=== PATIENT | female | born 1970 | race Caucasian/White ===

== ENCOUNTER → 2019-11-05 14:40 | Outpatient (BNVA) | payer BC, SELFPAY | PROVIDERS: Visit Provider Specialist | DX: F44.5 Conversion disorder with seizures or convulsions (principal); G43.109 Migraine with aura, not intractable, without status migrainosus; F17.210 Nicotine dependence, cigarettes, uncomplicated | CPT/HCPCS: 99204 ==

== ENCOUNTER 2019-12-31 12:53 | Outpatient (CLI) | payer BC, SELFPAY ==
--- NOTE | 2019-12-31 13:00 | MR_ITS ---
WS: [id number] MRI HEAD WITHOUT CONTRAST TECHNIQUE: Sagittal T1, T2 axial, T2 axial FLAIR, axial and coronal T1 images, axial susceptibility w eighted imaging, axial diffusion weighted images, and coronal T2 images were obtained. CLINICAL INFORMATION: [id number] Syncope and collapse COMPARISON: MRI October 30, 2019, CTA October 29, 2019 FINDINGS: Some images degraded by patient motion. No evidence of restricted diffusion to suggest acute ischemia. Ventricular system and basal cisterns are patent. Minimal periventricular white matter changes. No suspicious intracranial signal abnormali ties. No significant parenchymal volume loss. Normal posterior fossa. Normal vascular flow voids at the skull base. No extra-axial fluid collection s. No evidence of mass or mass effect. Mild mucosal thickening in the paranasal sinuses. Partial opac ification of the left frontal ethmoidal recess. Mastoid air cells are well aerated. Normal visualized posterior nasopharynx. Visualized upper cervical spine is normal. No hemosiderin on the susceptibility weighted images. Norm al optic chiasm and pituitary infundibulum. Temporal lobes and hippocampal formations are normal bila terally. No evidence of mesial temporal sclerosis or temporal lobe signal abnormality. No significant hippocampal atrophy. Proximal 7th and 8th cranial nerves appear unremarkable. MR/MR head wo con* [id number] IMPRESSION: 1. No evidence of restricted diffusion to suggest acute ischemia. 2. Minimal periventricular white matter changes of doubtful clinical significa nce. No suspicious intracranial signal abnormalities. 3. No significant parenchymal volume loss. 4. Temporal lobes and hippocampal formations are normal in appearance bilatera lly. No signal abnormality in the mesial temporal lobes. 5. Mild mucosal thickening in the paranasal sinuses with partial opacification of the left frontal ethmoidal recess consistent with mild sinusitis. Mastoid a ir cells well aerated. 6. No hemosiderin on the susceptibly weighted images. 7. No significant changes since October 30, 2019
--- NOTE | 2019-12-31 14:22 | USCV_ITS ---
Tony Bharath Age: 49 Gender: F : 1970 Exam Date: 12/31/2019 14:19 Ordering Phys: Verna Grover MD Technologist: Flavia Eller Exam Location: [facility] – [place] Indication: SYNCOPE AND COLLAPSE BP: / HR: 64 Rhythm: Sinus Technical Quality: Adequate MEASUREMENTS (Male / Female) Normal Values 2D ECHO LV Diastolic Diameter PLAX 4.3 cm 4.2 - 5.9 / 3.9 - 5.3 cm LV Systolic Diameter PLAX 2.3 cm IVS Diastolic Thickness 0.9 cm 0.6 - 1.0 / 0.6 - 0.9 cm IVS Systolic Thickness 1.4 cm LVPW Diastolic Thickness 0.7 cm 0.6 - 1.0 / 0.6 - 0.9 cm LVPW Systolic Thickness 1.6 cm LVOT Diameter 2.0 cm LV Ejection Fraction 2D Teich 77.7 % LV Ejection Fraction MOD 2C 85.1 % LV Ejection Fraction 2C AL 85.3 % LA Diameter 2.5 cm LA Width 2.6 cm LA Height 3.9 cm RA Width 2.3 cm RA Height 4.4 cm M-MODE LV Diastolic Diameter MM 5.4 cm 4.2 - 5.9 / 3.9 - 5.3 cm LV Systolic Diameter MM 3.5 cm LV Ejection Fraction MM Teich 65.4 % IVS Diastolic Thickness MM 0.9 cm 0.6 - 1.0 / 0.6 - 0.9 cm IVS Systolic Thickness MM 1.4 cm LVPW Diastolic Thickness MM 1.0 cm 0.6 - 1.0 / 0.6 - 0.9 cm LVPW Systolic Thickness MM 1.5 cm Aortic Annulus Diameter 3.2 cm LA Ao Ratio MM 0.8 MV E Point Septal Separation 0.2 cm DOPPLER AV Peak Velocity 147.0 cm/s LVOT Peak Velocity 128.0 cm/s AV Area Cont Eq vti 2.8 cm squared AV Area Cont Eq pk 2.8 cm squared MV Peak Velocity 99.0 cm/s MV Area PHT 3.1 cm squared Mitral E to A Ratio 1.0 MV E' Velocity 13.0 cm/s Mitral E to MV E' Ratio 9.1 Mitral E to LV E' Lateral Ratio 7.7 Mitral E to LV E' Septal Ratio 11.2 TR Peak Velocity 98.0 cm/s TR Peak Gradient 3.8 mmHg Right Atrial Pressure 3.0 mmHg Pulmonary Artery Systolic Pressu 6.8 mmHg PV Peak Velocity 92.0 cm/s RV Acceleration Time 0.1 s FINDINGS Left Ventricle Normal left ventricular cavity size. No regional wall motion abnormalities. Normal left ventricular systolic function. Left ventricular ejection fraction is estimated at 65 %. Grade I/IV diastolic dysfunction (abnormal relaxation filling pattern), normal to mildly elevated filling pressures. Right Ventricle The right ventricle is normal in size and function. Right Atrium The right atrium is normal in size. Left Atrium The left atrium is normal in size. Mitral Valve Moderately thickened mitral valve. No mitral valve stenosis. No mitral valve regurgitation. Aortic Valve Moderate aortic valve calcification. No aortic valve stenosis. No aortic valve regurgitation. Tricuspid Valve Structurally normal tricuspid valve without significant stenosis or regurgitation. Pulmonary artery systolic pressure is normal. Pulmonic Valve Structurally normal pulmonic valve without significant stenosis. There is no pulmonic regurgitation. Pericardium Normal pericardium without effusion. Aorta Normal ascending aorta dimension. CONCLUSIONS 1-Normal left ventricular cavity size. No regional wall motion abnormalities. Normal left ventricular systolic function. Left ventricular ejection fraction is estimated at 65 %. Grade I/IV diastolic dysfunction (abnormal relaxation filling pattern), normal to mildly elevated filling pressures. 2-Moderately thickened mitral valve. No mitral valve stenosis. No mitral valve regurgitation. 3-There is no pericardial effusion. 4-Pulmonary artery systolic pressure is within normal limits. 5-Right atrial pressure is around 5 mm of mercury. 6-There are no prior echocardiogram studies to compare. Leeanne Carlisle MD (Electronically Signed) Final Date: 02 January 2020 18:46 S
== END 2019-12-31 12:54 | disposition home or self-care (01) ==
LOC: RADSHAW 12:59
PROVIDERS: Visit Provider Specialist
DX: R55 Syncope and collapse (principal); I05.9 Rheumatic mitral valve disease, unspecified
CPT/HCPCS: 70551; 93306

== ENCOUNTER → 2020-01-09 11:19 | Outpatient (BNVA) | payer BC, SELFPAY | PROVIDERS: Visit Provider Specialist | DX: G40.909 Epilepsy, unspecified, not intractable, without status epilepticus (principal); G43.109 Migraine with aura, not intractable, without status migrainosus; F17.210 Nicotine dependence, cigarettes, uncomplicated | CPT/HCPCS: 99214 ==

== ENCOUNTER → 2020-04-14 15:07 | Outpatient (BNVA) | payer BC, SELFPAY | PROVIDERS: Visit Provider Specialist | DX: G40.909 Epilepsy, unspecified, not intractable, without status epilepticus (principal); G43.109 Migraine with aura, not intractable, without status migrainosus | CPT/HCPCS: 99214 ==